=== PATIENT | male | born 1960 | race Asian ===

== ENCOUNTER 2023-04-05 18:04 | Emergency (ER) | payer MEDICARE, OTHER ==
[~2023-04-05] VITALS: Ht 170.2 cm; Wt 83.9 kg
[2023-04-05] MEDS ORDERED: IV NORMAL SALINE 500 ML BAG IV ONE ×2 (18:15→19:00)
[2023-04-05] MEDS ORDERED: NITR0.4T48 SL (18:26)
[2023-04-05 18:37] LABS: BASOPHILS % (AUTO) 0.4 % (0.0-2.0); EOSINOPHILS # (AUTO) 0.2 K/uL (0.0-0.7); EOSINOPHILS % (AUTO) 2.1 % (0.0-7.0); HEMOGLOBIN 12.2 g/dL (12.5-16.3); LYMPHOCYTES % (AUTO) 24.2 % (20.5-51.5); MEAN CORPUSCULAR HEMOGLOBIN 29.6 uug (23.8-33.4); MEAN CORPUSCULAR HGB CONC 34 g/dL (32.5-36.3); MEAN CORPUSCULAR VOLUME 87.2 fL (73.0-96.2); MONOCYTES # (AUTO) 0.8 K/uL (0.1-1.30); MONOCYTES % (AUTO) 9.8 % (0.0-11.0); NEUTROPHILS # (AUTO) 5.3 K/uL (1.8-8.9); NEUTROPHILS % (AUTO) 63.5 % (38.5-71.5); PLATELET COUNT (AUTO) 375 K/uL (152-348); RED BLOOD CELL COUNT(AUTO) 4.13 MIL/uL (4.06-5.63); RED CELL DISTRIBUTION WIDTH 13.6 % (12.1-16.2); WHITE BLOOD COUNT (AUTO) 8.4 K/uL (3.6-10.2)
[2023-04-05 18:40] LABS: DIFFERENTIAL COMMENT 1
[2023-04-05 18:45] LABS: CALCIUM 9.5 mg/dL (8.5-10.1); CARBON DIOXIDE 25 mmol/L (21-32); CHLORIDE 95 mmol/L (98-107); GLUCOSE 192 mg/dL (74-106); POTASSIUM 3.2 mmol/L (3.5-5.1); SODIUM SERUM 132 mmol/L (136-145); UREA NITROGEN, BLOOD 18 mg/dL (7-18)
[2023-04-05 18:53] LABS: ALANINE AMINOTRANSFERASE 17 U/L (16-63); ALBUMIN 4.1 g/dL (3.4-5.0); ALKALINE PHOSPHATASE 75 U/L (50-136); ASPARTATE AMINOTRANSFERASE 10 U/L (15-37); BILIRUBIN,DIRECT 0.1 mg/dL (0.0-0.2); BILIRUBIN,TOTAL 0.4 mg/dL (0.2-1.0); TOTAL PROTEIN, SERUM 8.3 g/dL (6.4-8.2)
[2023-04-05] MEDS ORDERED: IV D5W-0.45% NS +20 KCL 1,000 ML IV ONE (19:00)
[2023-04-05] MEDS ORDERED: IV 0.9% SODIUM CHLORID+ 20 KCL 1,000 ML IV ONE (19:30)
[2023-04-05] MEDS ORDERED: IV 0.9% SODIUM CHLORID+ 20 KCL 1,000 ML ONE (19:38)
[2023-04-05 21:49] VITALS: BP 116/60; O2SAT 98
== END 2023-04-05 21:50 | disposition left against medical advice (07) ==
LOC: ER 19:29
DX: R42 Dizziness and giddiness (principal); I25.10 Atherosclerotic heart disease of native coronary artery without angina pectoris; G93.9 Disorder of brain, unspecified; H54.7 Unspecified visual loss; E11.9 Type 2 diabetes mellitus without complications; Z79.899 Other long term (current) drug therapy
CPT/HCPCS: 36415; 70450; 71045; 84484; 85025; 85730; 93005; A4606; A4663

== ENCOUNTER 2023-12-26 10:15 | Emergency (ER) | payer MEDICARE, OTHER ==
[~2023-12-26] VITALS: Ht 172.7 cm; Wt 84.8 kg
[~2023-12-26 10:15] MED LIST: ASPI81TA31 PO; GLIM2TAB31 PO; LOSA1TAB36 PO; NITR0.4T48 SL; ROSU20TA2 PO
[2023-12-26 10:21] VITALS: O2SAT 98
[2023-12-26] MEDS: IV NORMAL SALINE 1000 ML BAG IV ONE (11:11)
[2023-12-26 11:26] LABS: BASOPHILS % (AUTO) 0.7 % (0.0-2.0); EOSINOPHILS # (AUTO) 0.1 K/uL (0.0-0.7); EOSINOPHILS % (AUTO) 3.1 % (0.0-7.0); HEMOGLOBIN 12.6 g/dL (12.5-16.3); LYMPHOCYTES # (AUTO) 1.6 K/uL (0.8-4.8); LYMPHOCYTES % (AUTO) 33.6 % (20.5-51.5); MEAN CORPUSCULAR HEMOGLOBIN 29.2 uug (23.8-33.4); MEAN CORPUSCULAR HGB CONC 35 g/dL (32.5-36.3); MEAN CORPUSCULAR VOLUME 83.4 fL (73.0-96.2); MONOCYTES # (AUTO) 0.6 K/uL (0.1-1.30); MONOCYTES % (AUTO) 11.5 % (0.0-11.0); NEUTROPHILS # (AUTO) 2.5 K/uL (1.8-8.9); NEUTROPHILS % (AUTO) 51.1 % (38.5-71.5); PLATELET COUNT (AUTO) 213 K/uL (152-348); RED BLOOD CELL COUNT(AUTO) 4.31 MIL/uL (4.06-5.63); RED CELL DISTRIBUTION WIDTH 13.2 % (12.1-16.2); WHITE BLOOD COUNT (AUTO) 4.8 K/uL (3.6-10.2)
[2023-12-26 11:52] LABS: ALANINE AMINOTRANSFERASE 20 U/L (16-63); ALBUMIN 3.8 g/dL (3.4-5.0); ALKALINE PHOSPHATASE 61 U/L (50-136); ASPARTATE AMINOTRANSFERASE 15 U/L (15-37); BILIRUBIN,DIRECT 0.1 mg/dL (0.0-0.2); BILIRUBIN,TOTAL 0.4 mg/dL (0.2-1.0); CALCIUM 8.6 mg/dL (8.5-10.1); CARBON DIOXIDE 28 mmol/L (21-32); CHLORIDE 86 mmol/L (98-107); CREATININE 0.9 mg/dL (0.6-1.3); GLUCOSE 143 mg/dL (74-106); NT-PRO BNP 125 pg/mL (0-125); POTASSIUM 3.9 mmol/L (3.5-5.1); SODIUM SERUM 121 mmol/L (136-145); TOTAL PROTEIN, SERUM 7.3 g/dL (6.4-8.2); UREA NITROGEN, BLOOD 10 mg/dL (7-18)
[2023-12-26 12:25] LABS: DIFFERENTIAL COMMENT 1
== END 2023-12-26 16:30 | disposition left against medical advice (07) ==
LOC: ER 10:15
DX: E87.1 Hypo-osmolality and hyponatremia (principal); I21.A1 Myocardial infarction type 2; I25.10 Atherosclerotic heart disease of native coronary artery without angina pectoris; E11.9 Type 2 diabetes mellitus without complications; Z79.82 Long term (current) use of aspirin; Z79.899 Other long term (current) drug therapy
CPT/HCPCS: 99291; 96360; 96361 ×2; 80076; 80048; 82962; 83880; 83735; 85025; 85730; 84484; 36415; 93005; J7040; A4606; A4663

== ENCOUNTER 2024-03-04 08:38 | Emergency (ER) | payer MEDICARE, OTHER ==
[~2024-03-04] VITALS: Ht 170.2 cm; Wt 83.9 kg
[2024-03-04 08:41] VITALS: O2SAT 99
[2024-03-04 09:07] LABS: BASOPHILS % (AUTO) 0.5 % (0.0-2.0); EOSINOPHILS # (AUTO) 0.1 K/uL (0.0-0.7); HEMATOCRIT 36.8 % (36.7-47.1); HEMOGLOBIN 12.6 g/dL (12.5-16.3); LYMPHOCYTES # (AUTO) 1.6 K/uL (0.8-4.8); LYMPHOCYTES % (AUTO) 33.4 % (20.5-51.5); MEAN CORPUSCULAR HEMOGLOBIN 28.3 uug (23.8-33.4); MEAN CORPUSCULAR HGB CONC 34 g/dL (32.5-36.3); MEAN CORPUSCULAR VOLUME 82.6 fL (73.0-96.2); MONOCYTES # (AUTO) 0.5 K/uL (0.1-1.30); MONOCYTES % (AUTO) 10.1 % (0.0-11.0); NEUTROPHILS # (AUTO) 2.5 K/uL (1.8-8.9); PLATELET COUNT (AUTO) 218 K/uL (152-348); RED BLOOD CELL COUNT(AUTO) 4.46 MIL/uL (4.06-5.63); RED CELL DISTRIBUTION WIDTH 13.5 % (12.1-16.2); WHITE BLOOD COUNT (AUTO) 4.8 K/uL (3.6-10.2)
[2024-03-04 09:12] LABS: DIFFERENTIAL COMMENT 1
[2024-03-04] MEDS: IV NORMAL SALINE 1000 ML BAG IV ONE (09:19)
[2024-03-04 09:23] LABS: ALBUMIN 4.1 g/dL (3.4-5.0); BILIRUBIN,TOTAL 1.7 mg/dL (0.2-1.0); CALCIUM 8.6 mg/dL (8.5-10.1); CREATININE 0.8 mg/dL (0.6-1.3); POTASSIUM 3.4 mmol/L (3.5-5.1); TOTAL PROTEIN, SERUM 7.9 g/dL (6.4-8.2)
[2024-03-04] MEDS ORDERED: ONDANSETRON 4 MG/2 ML VIAL IV PRN (10:15)
[2024-03-04] MEDS ORDERED: MAGNESIUM HYDROXIDE 30 ML LIQUID UDC PO PRN (10:15)
[2024-03-04] MEDS ORDERED: IV NS 1000 ML 1,000 ML IV PRN (10:15)
[2024-03-04] MEDS ORDERED: REMEDY ESSENTIAL ZINC PASTE 113 GM TP PRN (10:15)
[2024-03-04] MEDS ORDERED: TEMAZEPAM 15 MG CAPSULE PO PRN (10:15)
[2024-03-04] MEDS ORDERED: ACETAMINOPHEN 325 MG TABLET PO PRN (10:15)
[2024-03-04 10:45] LABS: *BILIRUBIN,URIN NEGATIVE (NEGATIVE); *CLARITY,URINE CLEAR (CLEAR); *COLOR,URINE YELLOW (YELLOW); *KETONES,URINE NEGATIVE (NEGATIVE); *PROTEIN,URINE NEGATIVE (NEGATIVE); *UROBILINOGEN,URINE 0.2 E.U./dl (NORMAL); LEUKOCYTE ESTERASE ,URINE NEGATIVE (NEGATIVE); NITRITE, URINE NEGATIVE (NEGATIVE); PH,URINE 7.5 (5.0-8.0); UGLUCOSE NEGATIVE (NEGATIVE)
[2024-03-04 10:45] LABS: *CHLORIDE RNDM,URINE 76 mmol/L (100-250); *POTASSIUM RNDM,URINE 21 mmol/L (25-125); *SODIUM RNDM,URINE 90 mmol/L (40-220)
[2024-03-04 10:46] LABS: *BLOOD, URINE TRACE (NEGATIVE)
[2024-03-04 10:56] LABS: *URIC ACID RNDM,URINE 29.1 mg/dL (7.5-49.5)
[2024-03-04 11:15] LABS: BACTERIA,URINE FEW /HPF (NONE SEEN); RBC,URINE 0-3 /HPF (0-3); WBC,URINE NONE SEEN /HPF (0-3)
== END 2024-03-04 10:41 | disposition left against medical advice (07) ==
LOC: ER 08:43
DX: E87.1 Hypo-osmolality and hyponatremia (principal); E11.9 Type 2 diabetes mellitus without complications; I25.10 Atherosclerotic heart disease of native coronary artery without angina pectoris; Z79.82 Long term (current) use of aspirin; Z79.899 Other long term (current) drug therapy
CPT/HCPCS: 99285; 96360; 71045; 80053; 81001; 82436; 82962; 84133; 84300; 84550; 84560; 85025; 36415; 93005; J7040; A4606; A4663